=== PATIENT | male | born 2000 | race Caucasian/White ===

== ENCOUNTER 2022-07-19 10:55 | Emergency (ER) | payer SELFPAY ==
[~2022-07-19] VITALS: Ht 190.5 cm; Wt 65.8 kg
[2022-07-19] MEDS ORDERED: AMOXICILLIN500 M2 PO (12:39)
== END 2022-07-19 12:44 | disposition home or self-care (01) ==
LOC: ED 10:55
DX: S00.12XA Contusion of left eyelid and periocular area, initial encounter (principal); K08.89 Other specified disorders of teeth and supporting structures; W22.8XXA Striking against or struck by other objects, initial encounter; Y93.89 Activity, other specified; Y92.89 Other specified places as the place of occurrence of the external cause; Y99.8 Other external cause status

== ENCOUNTER 2022-09-29 08:50 | Emergency (ER) | payer OTHER ==
[~2022-09-29] VITALS: Ht 187.9 cm; Wt 68.0 kg
[~2022-09-29 08:50] MED LIST: AMOXICILLIN500 M2 PO
== END 2022-09-29 11:11 | disposition home or self-care (01) ==
LOC: ED 08:50
DX: M25.561 Pain in right knee (principal)

== ENCOUNTER → 2022-10-18 | Outpatient (CLI) | payer OTHER | END | disposition home or self-care (01) | LOC: MRI 03:29 | PROVIDERS: ATTEND Orthopaedic Surgery | DX: S82.131A Displaced fracture of medial condyle of right tibia, initial encounter for closed fracture (principal); M79.89 Other specified soft tissue disorders; X58.XXXA Exposure to other specified factors, initial encounter; Y93.89 Activity, other specified; Y92.89 Other specified places as the place of occurrence of the external cause; Y99.8 Other external cause status ==

== ENCOUNTER 2023-05-24 04:47 | Emergency (ER) | payer SELFPAY ==
[~2023-05-24] VITALS: Ht 190.5 cm; Wt 77.1 kg
[2023-05-24] MEDS ORDERED: Bacitracin Zinc 14 GM TUBE T ONE (05:55)
== END 2023-05-24 06:13 | disposition home or self-care (01) ==
LOC: ED 04:47
DX: J02.9 Acute pharyngitis, unspecified (principal)

== ENCOUNTER 2023-12-23 20:24 | Emergency (ER) | payer SELFPAY ==
[~2023-12-23] VITALS: Ht 187.9 cm; Wt 59.0 kg
[2023-12-23 22:19] LABS: BILIRUBIN Negative (Negative); BLOOD Trace-Intact (Negative); CLARITY Turbid (Clear); COLOR Yellow (Yellow); GLUCOSE Negative (Negative); KETONE Negative (Negative); LEUKO ESTERASE 3+ (Negative); NITRITE Negative (Negative); PH 7.5 (4.5-8.0); UROBILINOGEN 0.2 E.U./dl (0.0-1.0)
[2023-12-23 23:13] LABS: BACTERIA 2+; WBC TNTC wbc/hpf (0-5)
[2023-12-23] MEDS ORDERED: AZITHROMYCIN 250 MG TAB PO ONE (23:25)
== END 2023-12-23 23:47 | disposition home or self-care (01) ==
LOC: ED 20:24
PROVIDERS: Internal Medicine
DX: R30.0 Dysuria (principal); Z20.2 Contact with and (suspected) exposure to infections with a predominantly sexual mode of transmission; F19.10 Other psychoactive substance abuse, uncomplicated

== ENCOUNTER 2024-04-06 01:30 | Emergency (ER) | payer SELFPAY ==
[~2024-04-06] VITALS: Ht 187.9 cm; Wt 54.4 kg
[2024-04-06] MEDS ORDERED: Amoxicillin/Clavulanate Pota 875 MG TAB PO ONE (02:35)
[2024-04-06] MEDS ORDERED: MELOXICAM15 MG PO (02:35)
[2024-04-06] MEDS ORDERED: AMOX-CLAV 875-1 EACH PO (02:35)
== END 2024-04-06 02:56 | disposition home or self-care (01) ==
LOC: ED 01:30
DX: K04.7 Periapical abscess without sinus (principal); F17.200 Nicotine dependence, unspecified, uncomplicated

== ENCOUNTER 2024-07-15 21:02 | Emergency (ER) | payer SELFPAY ==
[~2024-07-15] VITALS: Ht 190.5 cm; Wt 63.5 kg
[~2024-07-15 21:02] MED LIST changes: +AMOX-CLAV 875-1 EACH PO; +MELOXICAM15 MG PO
[2024-07-15] MEDS ORDERED: Ketorolac Tromethamine 60 MG/2 ML VIAL IM ONE (21:35)
[2024-07-15] MEDS ORDERED: PENICILLIN V POTASSIUM 500 MG TAB PO ONE (21:35)
[2024-07-15] MEDS ORDERED: BENZOCAINE 20% 11.9 GM GEL T STA (21:36)
[2024-07-15] MEDS ORDERED: Lidocaine Hydrochloride 15 ML UDC PO STA (21:36)
[2024-07-15] MEDS ORDERED: NAPROSYN500 MG PO (21:37)
[2024-07-15] MEDS ORDERED: PENICILLIN VK500 MG PO (21:37)
== END 2024-07-15 21:55 | disposition home or self-care (01) ==
LOC: ED 21:02
DX: K04.7 Periapical abscess without sinus (principal); K02.9 Dental caries, unspecified

== ENCOUNTER 2024-09-15 16:41 | Emergency (ER) | payer SELFPAY ==
[~2024-09-15 16:41] MED LIST changes: +NAPROSYN500 MG PO; +PENICILLIN VK500 MG PO
[2024-09-15] MEDS ORDERED: diphenhydrAMINE hydrochloride 25 MG CAP PO ONE (17:50)
[2024-09-15] MEDS ORDERED: methylPREDNISolone sod succ 1,000 MG/16 ML VIAL IM ONE (17:50)
[2024-09-15] MEDS ORDERED: MEDROL DOSEPAK4 MG PO (17:53)
[2024-09-15] MEDS ORDERED: TRIAMCINOLONE ACETONIDE 15 GM TUBE T ONE (17:55)
== END 2024-09-15 18:17 | disposition home or self-care (01) ==
LOC: ED 16:41
DX: L25.9 Unspecified contact dermatitis, unspecified cause (principal)

== ENCOUNTER 2024-10-31 17:07 | Emergency (ER) | payer SELFPAY ==
[~2024-10-31] VITALS: Ht 190.5 cm; Wt 68.0 kg
[~2024-10-31 17:07] MED LIST changes: +MEDROL DOSEPAK4 MG PO
[2024-10-31] MEDS ORDERED: ACETAMINOPHEN 325 MG TAB PO ONE (17:55)
[2024-10-31] MEDS ORDERED: SODIUM CHLORIDE 0.9% 1,000 ML IV ONE (17:55)
[2024-10-31] MEDS ORDERED: Albuterol Sulf/Ipratropium 3 ML VIAL NEB ONE (17:55)
[2024-10-31 18:28] LABS: BASO # 0.1 10*3/uL (0.0-0.1); BASO % 0.9 % (0.0-1.0); EOS # 0.3 10*3/uL (0.0-0.4); EOS % 2.8 % (1.0-4.0); MEAN CELL VOLUME 90.4 fl (80.0-94.0); MEAN CORPUSCULAR HGB 29.8 pg (27.0-31.0); MEAN PLATELET VOLUME 8.9 fl (9.6-12.3); MONO # 1.3 10*3/uL (0.1-1.0); MONO % 11.2 % (3.0-9.0); NEUT # 7.9 10*3/uL (2.3-7.9); NEUT % 70.2 % (47.0-73.0); NUCLEATED RED BLOOD CELL 0.0 % (0.0-0.0); NUCLEATED RED BLOOD CELL 0.0 10*3/uL (0.0-0.0); PLATELET COUNT AUTOMATED 260 10*3/uL (130-400); RED CELL DISTRI WIDTH 13.3 % (0-14.5)
[2024-10-31 18:47] LABS: BUN 15 mg/dl (9-23)
[2024-10-31] MEDS ORDERED: BROMFED DM COU118 M2 PO (19:50)
[2024-10-31] MEDS ORDERED: MEDROL DOSEPAK4 MG PO (19:55)
[2024-10-31] MEDS ORDERED: VENT7GM INH (19:55)
== END 2024-10-31 20:08 | disposition home or self-care (01) ==
LOC: ED 17:07
PROVIDERS: Nurse Practitioner Family
DX: J06.9 Acute upper respiratory infection, unspecified (principal); Z20.822 Contact with and (suspected) exposure to COVID-19

== ENCOUNTER 2025-02-03 18:55 | Emergency (ER) | payer BC ==
[~2025-02-03] VITALS: Ht 190.5 cm; Wt 68.0 kg
[~2025-02-03 18:55] MED LIST changes: +BROMFED DM COU118 M2 PO; +VENT7GM INH
[2025-02-03] MEDS ORDERED: Ondansetron Hydrochloride 4 MG/2 ML VIAL IV ONE (20:05)
[2025-02-03] MEDS ORDERED: Amoxicillin/Clavulanate Pota 875 MG TAB PO ONE (20:05)
[2025-02-03] MEDS ORDERED: Acetaminophen/Hydrocodone 5 MG/325 MG TABLET PO ONE (20:05)
[2025-02-03] MEDS ORDERED: AMOX-CLAV 875-1 EACH PO (20:13)
[2025-02-03] MEDS ORDERED: Ondansetron Hydrochloride 4 MG TAB SL ONE (20:15)
== END 2025-02-03 20:25 | disposition home or self-care (01) ==
LOC: ED 18:55
DX: K02.9 Dental caries, unspecified (principal); Z79.899 Other long term (current) drug therapy